=== PATIENT | female | born 1975 | race Caucasian/White ===

== ENCOUNTER 2017-06-28 11:04 | Inpatient (IN) | payer MEDICAID, OTHER ==
[~2017-06-28] VITALS: Ht 167.6 cm; Wt 109.8 kg
[~2017-06-28 11:04] MED LIST: MISO200T4
[2017-06-28] MEDS ORDERED: GLYB2.5T4 PO (12:15)
[2017-06-28] MEDS ORDERED: PREN-88 PO (12:15)
[2017-06-28 22:34] LABS: BASOPHILS % 0.3 % (0.0-2.0); EOSINOPHILS % 0.4 % (0.0-5.0); HEMATOCRIT. 36.1 % (36.0-48.0); HEMOGLOBIN. 12.3 g/dL (12.0-16.0); LYMPHOCYTES % 16.9 % (20.0-50.0); MEAN CORPUSCULAR HEMOGLOBIN 32.1 pg (28.0-32.0); MEAN CORPUSCULAR VOLUME 94.1 fL (81.0-99.0); MEAN PLATELET VOLUME 9.7 fl (7.4-10.4); MONOCYTES % 6.8 % (2.0-8.0); NEUTROPHILS % 75.6 % (40.0-76.0); PLATELET 205 x1000/uL (130-400); RED BLOOD CELL COUNT 3.84 mill/uL (4.2-5.4); RED CELL DISTRIBUTION WIDTH 14.5 % (11.6-14.6)
[2017-06-28 22:36] LABS: PARTIAL THROMBOPLASTIN TIME 25.6 sec (23.4-31.0); PROTHROMBIN TIME 10.4 sec (9.4-11.6)
[2017-06-28 22:44] LABS: CHLORIDE 105 mEq/L (98-107)
[2017-06-28 22:53] LABS: CARBON DIOXIDE 21 mEq/L (21-32)
[2017-06-28] MEDS: BETAMETHASONE ACET/BETAMET 30 MG/5 ML VIAL IM SCH (22:54)
[2017-06-28] MEDS: LACTATED RINGERS 1,000 ML IV SCH (22:54)
[2017-06-28 23:12] LABS: HEPATITIS B SURFACE ANTIGEN NEGATIVE; RUBELLA IGG 470.7 IU/mL (4.99-10)
[2017-06-29] MEDS: INSULIN LISPRO 100 UNITS/ML SUBCUT SCH ×4 (02:00→20:12)
[2017-06-29] MEDS: LACTATED RINGERS 1,000 ML IV SCH ×3 (05:14→18:46)
[2017-06-29] MEDS: BETAMETHASONE ACET/BETAMET 30 MG/5 ML VIAL IM SCH (23:10)
[2017-06-30] MEDS: LACTATED RINGERS 1,000 ML IV SCH ×3 (02:07→16:49)
[2017-06-30] MEDS: INSULIN LISPRO 100 UNITS/ML SUBCUT SCH ×3 (07:55→21:28)
[2017-06-30] MEDS ORDERED: METHYLERGONOVINE MALEATE 0.2 MG/ML IM PRN (20:30)
[2017-06-30] MEDS ORDERED: LIDOCAINE HCL 1% 20ML VIAL (Pyxis) INJ INFIL SCH (20:30)
[2017-06-30] MEDS ORDERED: NALOXONE HCL 0.4 MG/ML 1ML VIAL IM PRN (20:30)
[2017-06-30] MEDS ORDERED: BUTORPHANOL TARTRATE 2 MG/ML VIAL IV PRN (20:30)
[2017-06-30] MEDS ORDERED: CARBOPROST TROMETHAMINE 250 MCG/ML AMPUL IM PRN (20:30)
[2017-06-30] MEDS: DINOPROSTONE 10MG VAGINAL INSERT VG NR ×2 (22:52→22:53)
[2017-07-01] MEDS: INSULIN LISPRO 100 UNITS/ML SUBCUT SCH ×2 (02:20→07:19)
[2017-07-01] MEDS: LACTATED RINGERS 1,000 ML IV SCH ×3 (10:02→18:00)
[2017-07-01] MEDS ORDERED: MISOPROSTOL 100MCG TABLET VG PRN (12:15)
[2017-07-01] MEDS ORDERED: ACETAMINOPHEN 325MG TABLET PO SCH (14:00)
[2017-07-01] MEDS ORDERED: BUPIVACAINE HCL/NS/PF EPIDURAL 100 ML EP ONE (15:20)
[2017-07-01] MEDS ORDERED: BUPIVACAINE HCL/NS/PF EPIDURAL 100 ML EP SCH (15:20)
[2017-07-01] MEDS ORDERED: FENTANYL CITRATE/PF 50MCG/ML 2ML VIAL ONE ×2 (15:20→19:15)
[2017-07-01] MEDS ORDERED: BUPIVACAINE HCL/PF 0.25% (2.5MG/ML) 10ML ONE (15:20)
[2017-07-01] MEDS ORDERED: ONDANSETRON HCL 4MG/2ML VIAL IV PRN (16:00)
[2017-07-01] MEDS: AMPICILLIN 2,000 MG in SODIUM CHLORIDE 0.9% 100 ML IV SCH ×2 (17:51→21:44)
[2017-07-01] MEDS ORDERED: LIDOCAINE HCL/PF 2% 20MG/ML 5 ML/VIAL ONE ×3 (18:04→20:59)
[2017-07-01] MEDS ORDERED: LACTATED RINGERS 1,000 ML IV SCH (21:30)
[2017-07-01] MEDS: OXYTOCIN 20 UNITS in LACTATED RINGERS 1,000 ML IV SCH (21:43)
[2017-07-01] MEDS ORDERED: RHO(D) IMMUNE GLOBULIN 300 MCG/SYR IM PRN (22:45)
[2017-07-01] MEDS ORDERED: GLYCERIN/WITCH HAZEL LEAF MEDICATED PAD TOP PRN (22:45)
[2017-07-01] MEDS ORDERED: IBUPROFEN 400MG TABLET PO PRN (22:45)
[2017-07-01] MEDS ORDERED: DIPHENHYDRAMINE 25MG CAPSULE PO PRN (22:45)
[2017-07-01] MEDS ORDERED: BISACODYL 10MG SUPP PR PRN (22:45)
[2017-07-01] MEDS ORDERED: OXYCODONE HCL/ACETAMINOPHEN 5/325MG TABLET PO PRN ×2 (22:45)
[2017-07-01] MEDS ORDERED: METHYLERGONOVINE MALEATE 0.2 MG/ML IM PRN (23:00)
[2017-07-01] MEDS: IBUPROFEN 800MG TABLET PO PRN (23:45)
[2017-07-02] VITALS (8 sets, daily range): BP systolic 90–112; BP diastolic 49–65
[2017-07-02] MEDS: OXYTOCIN 20 UNITS in LACTATED RINGERS 1,000 ML IV SCH ×2 (00:23→08:04)
[2017-07-02 07:19] LABS: BASOPHILS % 0.3 % (0.0-2.0); EOSINOPHILS % 0.3 % (0.0-5.0); HEMATOCRIT. 31.5 % (36.0-48.0); HEMOGLOBIN. 10.6 g/dL (12.0-16.0); LYMPHOCYTES % 15.6 % (20.0-50.0); MEAN CORPUSCULAR HEMOGLOBIN 32.2 pg (28.0-32.0); MEAN CORPUSCULAR VOLUME 95.4 fL (81.0-99.0); MEAN PLATELET VOLUME 9.1 fl (7.4-10.4); MONOCYTES % 8.6 % (2.0-8.0); NEUTROPHILS % 75.2 % (40.0-76.0); PLATELET 150 x1000/uL (130-400); RED CELL DISTRIBUTION WIDTH 14.6 % (11.6-14.6)
[2017-07-02] MEDS ORDERED: EPHEDRINE SULFATE 50MG/ML VIAL ONE (08:57)
[2017-07-02] MEDS ORDERED: FENTANYL CITRATE/PF 50MCG/ML 2ML VIAL ONE (08:57)
[2017-07-02] MEDS ORDERED: MIDAZOLAM HCL 2 MG/2 ML VIAL ONE (08:57)
[2017-07-02] MEDS ORDERED: PHENYLEPHRINE HCL 10 MG/ML 1ML (IV VIAL) IV ONE (08:57)
[2017-07-02] MEDS ORDERED: SODIUM CHLORIDE 0.9% 10ML VIAL ONE (08:57)
[2017-07-02] MEDS ORDERED: PRENATAL VIT/FE FUMARATE/FA TABLET PO SCH (09:00)
[2017-07-02] MEDS ORDERED: ONDANSETRON HCL 4MG/2ML VIAL ONE (10:12)
[2017-07-02] MEDS ORDERED: NALOXONE HCL 0.4 MG/ML 1ML VIAL IV PRN (10:45)
[2017-07-02] MEDS ORDERED: DIPHENHYDRAMINE 50MG/ML VIAL IV PRN (10:45)
[2017-07-02] MEDS ORDERED: ONDANSETRON HCL 4MG/2ML VIAL IV PRN (10:45)
[2017-07-02] MEDS: IBUPROFEN 800MG TABLET PO PRN ×2 (15:52→21:09)
[2017-07-02] MEDS: FERROUS SULFATE 325MG TABLET PO SCH (18:40)
[2017-07-02] MEDS ORDERED: DOCUSATE SODIUM 100MG CAPSULE PO SCH (21:00)
[2017-07-03] VITALS: BP 98/60
[2017-07-03 07:41] VITALS: BP 110/70
[2017-07-03] MEDS: FERROUS SULFATE 325MG TABLET PO SCH (08:34)
[2017-07-03] MEDS: IBUPROFEN 800MG TABLET PO PRN ×2 (08:35→15:34)
== END 2017-07-03 16:10 | disposition home or self-care (01) | DRG 541 ==
LOC: L&D 11:04 → EDBD 11:04 → OBSVTOIN 11:04 → L&D 12:52 → 7EST PP/OB 07-02 00:27
PROVIDERS: ADMIT Obstetrics & Gynecology; ATTEND Obstetrics & Gynecology
PROC: 00HU33Z Insertion of Infusion Device into Spinal Canal, Percutaneous Approach (ICD-10-PCS; 2017-07-01)
PROC: 0UQMXZZ Repair Vulva, External Approach (ICD-10-PCS; 2017-07-01)
PROC: 3E0S3CZ (ICD-10-PCS; 2017-07-01)
PROC: 10E0XZZ Delivery of Products of Conception, External Approach (ICD-10-PCS; principal; 2017-07-01 23:59)
PROC: 0UB70ZZ Excision of Bilateral Fallopian Tubes, Open Approach (ICD-10-PCS; 2017-07-03)
DX: O24.429 Gestational diabetes mellitus in childbirth, unspecified control (principal); O41.03X0 Oligohydramnios, third trimester, not applicable or unspecified; O99.214 Obesity complicating childbirth; E86.0 Dehydration; Z37.0 Single live birth; Z30.2 Encounter for sterilization; Z3A.37 37 weeks gestation of pregnancy; O71.82 Other specified trauma to perineum and vulva; O09.523 Supervision of elderly multigravida, third trimester
CPT/HCPCS: 36415; 76815; 76818; 80053; 82947; 82962; 85025; 85610; 85730; 86592; 86703; 86762; 86850; 86900; 87340; 88302; A4216; J0171; J0290; J0595; J0702; J1815; J2210; J2250; J2370; J2405; J3010; J3490; J7050; J7120; A4315